=== PATIENT | female | born 1975 | race Caucasian/White ===

== ENCOUNTER → 2021-09-13 | Outpatient (CLI) | payer OTHER | LOC: MRI 09-06 10:30 | DX: R22.2 Localized swelling, mass and lump, trunk (principal); R10.9 Unspecified abdominal pain; M54.10 Radiculopathy, site unspecified; M54.50 Low back pain, unspecified; K76.0 Fatty (change of) liver, not elsewhere classified | CPT/HCPCS: 36415; 82565; Q9967 ==